=== PATIENT | female | born 1950 | race Caucasian/White ===

== ENCOUNTER 2018-05-17 09:05 | Emergency (ER) | payer MEDICARE, BC, OTHER ==
[2018-05-17] MEDS: LIDOCAINE 2% MDV 20 ML VIAL SC (09:30)
[2018-05-17] MEDS: AUGMENTIN 875 MG TAB PO (10:21)
== END 2018-05-17 10:30 | disposition home or self-care (01) ==
LOC: M ED 09:05
DX: S61.342A Puncture wound with foreign body of right middle finger with damage to nail, initial encounter (principal); W26.8XXA Contact with other sharp object(s), not elsewhere classified, initial encounter; Y92.018 Other place in single-family (private) house as the place of occurrence of the external cause
CPT/HCPCS: 10120